=== PATIENT | male | born 1955 | race Caucasian/White ===

== ENCOUNTER 2022-01-17 18:55 | Emergency (ER) | payer MEDICARE, SELFPAY ==
--- NOTE | 2022-01-17 19:00 | ED.SKABFB ---
HPI - Skin/Abscess/Foreign Bdy General Chief complaint: Skin/Abscess/Foreign Body Stated complaint: Insect Bite Lt Hip Time Seen by Provider: 01/17/22 19:00 Source: patient Mode of arrival: ambulatory Limitations: no limitations History of Present Illness HPI narrative: Mr. Turcios is a 66-year-old male patient presenting to the clinic today with complaints of an insect bite to his left hip. He reports his noticed a tick bite to his left hip today and tried to remove it. She only removed part of the tick as it appears that the mandible is still intact. She told him to come in and be evaluated. Related Data Home Medications Medication Instructions Recorded Confirmed rosuvastatin 10 mg tablet 1 tablet PO DAILY 01/17/22 01/17/22 Allergies Allergy/AdvReac Type Severity Reaction Status Date / Time No Known Allergies Allergy Verified 01/17/22 18:57 Review of Systems Review of Systems: Pertinent positives per HPI. Patient denies any fever, chills, rash, headache, visual changes, dizziness, cough, runny nose, sore throat, shortness of breath, chest pain, palpitations, nausea, vomiting, diarrhea, constipation, abdominal pain, or any urinary issues. [facility] Social History Social History Smoking status: Never smoker Alcohol intake: current Comments At the time of my signature, I reviewed and agree with the nursing past medical, surgical, social, and family history. There is no relevant family history pertinent to the patient complaint. Exam Narrative: General: Well-developed, well nourished, in no apparent distress Head: Normocephalic, atraumatic. Cardio: Regular rate and rhythm, s1 and s2 normal, no murmur appreciated. Resp: Clear to auscultation bilaterally, no rhonchi, rales, wheezing or rubs. Integumentary: [place], warm, and dry, intact without lesion, retained mandible of a tick to the left upper posterior hip with a raised red itchy indurated rash surrounding the tick. Induration/redness the size of a half dollar. Area was cleansed with alcohol and the bevel of an 18-gauge needle was used to remove the tick mandible. Removal was successful. Triple antibiotic ointment and Band-Aid applied. Course Course Emergency Course: Portions of this record may have been created with voice recognition software. Level of Care: Express Care Visit Vital Signs Vital signs: Vital signs reviewed Procedures Foreign Body Removal Foreign Body #1: Foreign Body Removal Narrative: Verbal consent obtained to remove tick mandible from left posterior hip. Area was cleansed with alcohol and an 18-gauge needle bevel was used to remove the tick mandible from the skin. Removal was successful, triple antibiotic ointment and Band-Aid applied. MDM - Skin/Abscess/Foreign Bdy MDM Narrative Medical decision making narrative: At the time of visit patient is resting comfortably on the exam table. Has retained tick mandible in the left posterior hip. 18-gauge bevel was used to remove tick mandible. Area was cleansed with alcohol and triple antibiotic ointment and Band-Aid applied. Supportive measures were discussed with the patient. I will give him a one-time dose of doxycycline 200 mg p.o. for prophylaxis. Differential Diagnosis Differential diagnosis: Likely abscess of skin or subcutaneous tissue, cellulitis and insect bites Discharge Plan Discharge Clinical Impression: Tick bite Patient Disposition: Home, Self-Care Condition: Stable Instructions: Antibiotic Form, Tick Bite (ED) Additional Instructions: Mandible of the tick was removed using an 18-gauge needle. Keep the area clean and dry May apply triple antibiotic ointment and Band-Aid to cover x48 hours Doxycycline 200 mg by mouth x1 dose Tylenol/Motrin as needed for any pain or fever Follow-up with your PCP in 3 to 5 days if symptoms persist or sooner if they worsen. Prescript
[2022-01-17 19:05] VITALS: BP 114/63; PULSE 86; RESP 18; TEMP 36.6; O2SAT 98
== END 2022-01-17 19:15 | disposition home or self-care (01) ==
PROVIDERS: Emergency Provider Nurse Practitioner Family; PCP Internal Medicine
DX: S70.262A Insect bite (nonvenomous), left hip, initial encounter (principal); W57.XXXA Bitten or stung by nonvenomous insect and other nonvenomous arthropods, initial encounter; E78.00 Pure hypercholesterolemia, unspecified
CPT/HCPCS: 99213; G0463